=== PATIENT | male | born 1990 | race Caucasian/White ===

== ENCOUNTER 2023-04-06 13:17 | Inpatient (IN) | payer OTHER ==
[2023-04-06] MEDS ORDERED: ACETAMINOPHEN 1000 MG/100 ML BAG IVPB ONE ×2 (14:08→21:22)
[2023-04-06] MEDS ORDERED: ACETAMINOPHEN INJECTION 100 ML IVPB ONE (14:20)
[2023-04-06 14:53] LABS: BASO % 0.2 % (0-2.0); EOS % 1.2 % (0-4.5); HEMATOCRIT 34.9 % (35.4-49); HEMOGLOBIN 11.7 GM/dL (11.7-16.9); MCH 29.7 pg (25.7-33.7); MCHC 33.6 g/dl (32.0-35.9); MEAN CELL VOLUME 88.4 fl (80-96); MEAN PLT VOLUME 7.4 fl (7.5-11.1); MONO % 6.8 % (3.8-10.2); NEUT % 82.8 % (42.8-82.8); PLATELET COUNT 256 10^3/uL (134-434); RBC 3.94 M/mm3 (4.00-5.60); RDW 13.3 % (11.9-15.9); WHITE BLOOD COUNT 14.4 K/mm3 (4.0-10.0)
[2023-04-06] MEDS ORDERED: ALBUTEROL SO4 0.083% IH SOL 2.5 MG/3 ML VIAL.NEB. NEB ONE (15:16)
[2023-04-06 15:17] LABS: CALCIUM 8.5 mg/dL (8.5-10.1)
[2023-04-06] MEDS ORDERED: LIDOCAINE 5% TOPICAL PATCH ONE (15:17)
[2023-04-06 15:18] LABS: ALBUMIN 2.7 g/dl (3.4-5.0); BLOOD UREA NITROGEN 12.5 mg/dL (7-18)
[2023-04-06] MEDS ORDERED: ACETAMINOPHEN 500 MG TABLET (FP) PO PRN (15:19)
[2023-04-06] MEDS ORDERED: KETOROLAC TROMETHAMINE 15 MG/ML VIAL IVPUSH PRN (15:19)
[2023-04-06 15:21] LABS: CREATININE 0.9 mg/dL (0.55-1.3)
[2023-04-06 15:22] LABS: BILIRUBIN,TOTAL 0.6 mg/dL (0.2-1)
[2023-04-06 15:23] LABS: TOT PROT 6.8 g/dl (6.4-8.2)
[2023-04-06] MEDS: LIDOCAINE 5% TOPICAL PATCH TP SCH (15:29)
[2023-04-06] MEDS ORDERED: ALBUTEROL SO4 0.5 % INH SOLN 2.5 MG/0.5 ML VIAL.NEB. NEB SCH (15:30)
[2023-04-06] MEDS ORDERED: ALBUTEROL SULFATE 0.021% (0.63 MG/3 ML) VIAL.NEB NEB SCH (16:00)
[2023-04-06] MEDS: ALBUTEROL SO4 0.083% IH SOL 2.5 MG/3 ML VIAL.NEB. NEB SCH ×2 (20:41→23:02)
[2023-04-06] MEDS: HEPARIN NA (PORCINE) 5,000 UNITS/ML 1ML VIAL SQ SCH (21:41)
[2023-04-06] MEDS: DOXYCYCLINE INJECTION 100 MG in DEXTROSE 5%-WATER 100 ML IVPB SCH (21:42)
[2023-04-06] MEDS ORDERED: LIDOCAINE PATCH REMOVAL MC SCH (22:00)
[2023-04-07] MEDS: ALBUTEROL SO4 0.083% IH SOL 2.5 MG/3 ML VIAL.NEB. NEB SCH ×5 (04:10→20:45)
[2023-04-07 09:13] LABS: BASO % 0.2 % (0-2.0); EOS % 0.4 % (0-4.5); HEMATOCRIT 35.8 % (35.4-49); HEMOGLOBIN 11.9 GM/dL (11.7-16.9); LYMPH % 11.2 % (8-40); MCH 29.9 pg (25.7-33.7); MCHC 33.2 g/dl (32.0-35.9); MEAN CELL VOLUME 89.8 fl (80-96); MEAN PLT VOLUME 7.8 fl (7.5-11.1); MONO % 8.1 % (3.8-10.2); NEUT % 80.1 % (42.8-82.8); PLATELET COUNT 298 10^3/uL (134-434); RBC 3.98 M/mm3 (4.00-5.60); RDW 12.6 % (11.9-15.9)
[2023-04-07] MEDS: HEPARIN NA (PORCINE) 5,000 UNITS/ML 1ML VIAL SQ SCH ×2 (09:14→21:04)
[2023-04-07] MEDS: DOXYCYCLINE INJECTION 100 MG in DEXTROSE 5%-WATER 100 ML IVPB SCH (09:15)
[2023-04-07] MEDS: LIDOCAINE 5% TOPICAL PATCH TP SCH (09:15)
[2023-04-07 09:29] LABS: POTASSIUM 3.9 mmol/L (3.5-5.1)
[2023-04-07 09:30] LABS: CALCIUM 8.6 mg/dL (8.5-10.1)
[2023-04-07 09:31] LABS: BLOOD UREA NITROGEN 7.2 mg/dL (7-18)
[2023-04-07] MEDS ORDERED: CEFTRIAXONE 1 GM in DEXTROSE 5%-WATER - 50 ML IVPB SCH (10:00)
[2023-04-07] MEDS ORDERED: PIPERACILLIN/TAZOB 4.5 GM 4.5 GM in DEXTROSE 5%-WATER 100 ML IVPB SCH (11:00)
[2023-04-07] MEDS ORDERED: ACETAMINOPHEN 1000 MG/100 ML BAG IVPB ONE (12:05)
[2023-04-07] MEDS: methylPREDNISolone NA SUCC 40 MG/1 ML VIAL IVPUSH SCH (13:12)
[2023-04-07] MEDS: LINEZOLID 600 MG PREMIX BAG 600 MG/300 ML BAG IVPB SCH (13:45)
[2023-04-07] MEDS: PIPERACILLIN/TAZOB 4.5 GM 4.5 GM in DEXTROSE 5%-WATER 100 ML IVPB SCH ×2 (15:10→21:04)
[2023-04-07] MEDS ORDERED: FENTANYL CITRATE/PF 50 MCG/ML VIAL ONE (16:57)
[2023-04-07] MEDS ORDERED: FENTANYL CITRATE/PF 50 MCG/ML VIAL IVPUSH ONE (17:00)
[2023-04-07] MEDS ORDERED: KETOROLAC TROMETHAMINE 15 MG/ML VIAL IVPUSH PRN (20:03)
[2023-04-07] MEDS ORDERED: ALBUTEROL SO4 0.083% IH SOL 2.5 MG/3 ML VIAL.NEB. NEB ONE (20:39)
[2023-04-07] MEDS: LIDOCAINE PATCH REMOVAL MC SCH (21:04)
[2023-04-07] MEDS: ACETAMINOPHEN 1000 MG/100 ML BAG IVPB PRN (21:05)
[2023-04-07 22:35] LABS: BF WBC & OTHER NUCLEATED CELLS 105 /mm3
[2023-04-07 23:12] LABS: BODY FLUID MACROPHAGES 2 %
[2023-04-08] MEDS: LINEZOLID 600 MG PREMIX BAG 600 MG/300 ML BAG IVPB SCH ×2 (00:04→12:23)
[2023-04-08] MEDS: PIPERACILLIN/TAZOB 4.5 GM 4.5 GM in DEXTROSE 5%-WATER 100 ML IVPB SCH ×4 (03:38→21:25)
[2023-04-08] MEDS: ALBUTEROL SO4 0.083% IH SOL 2.5 MG/3 ML VIAL.NEB. NEB SCH ×7 (04:00→23:38)
[2023-04-08] MEDS: HEPARIN NA (PORCINE) 5,000 UNITS/ML 1ML VIAL SQ SCH ×2 (09:03→21:25)
[2023-04-08] MEDS: methylPREDNISolone NA SUCC 40 MG/1 ML VIAL IVPUSH SCH (09:03)
[2023-04-08] MEDS: ACETAMINOPHEN 1000 MG/100 ML BAG IVPB PRN ×2 (09:03→17:12)
[2023-04-08] MEDS: LIDOCAINE 5% TOPICAL PATCH TP SCH (09:04)
[2023-04-08 10:10] LABS: BASO % 0.3 % (0-2.0); HEMOGLOBIN 11.3 GM/dL (11.7-16.9); MCH 29.1 pg (25.7-33.7); MCHC 33.2 g/dl (32.0-35.9); MEAN CELL VOLUME 87.5 fl (80-96); MEAN PLT VOLUME 7.8 fl (7.5-11.1); MONO % 7.8 % (3.8-10.2); NEUT % 86.9 % (42.8-82.8); PLATELET COUNT 325 10^3/uL (134-434); RBC 3.89 M/mm3 (4.00-5.60); RDW 12.9 % (11.9-15.9)
[2023-04-08 10:11] LABS: POTASSIUM 4.3 mmol/L (3.5-5.1)
[2023-04-08 10:13] LABS: CALCIUM 8.9 mg/dL (8.5-10.1)
[2023-04-08 10:14] LABS: ALBUMIN 2.6 g/dl (3.4-5.0); BLOOD UREA NITROGEN 9.6 mg/dL (7-18); MAGNESIUM 2.2 mg/dL (1.8-2.4)
[2023-04-08 10:17] LABS: CREATININE 0.8 mg/dL (0.55-1.3); PHOSPHOROUS 4.2 mg/dL (2.5-4.9)
[2023-04-08 10:18] LABS: BILIRUBIN,TOTAL 0.5 mg/dL (0.2-1); TOT PROT 7.2 g/dl (6.4-8.2)
[2023-04-08 12:14] LABS: INR 1.19 (0.83-1.09); PROTHROMBIN TIME (PATIENT) 13.8 SEC (9.7-13.0)
[2023-04-08 12:17] LABS: ACTIVATED PTT 30.2 SECONDS (25.2-36.5)
[2023-04-08 12:48] LABS: HIV INTERPRETATION NEGATIVE (NEGATIVE)
[2023-04-08] MEDS: LIDOCAINE PATCH REMOVAL MC SCH (21:25)
[2023-04-09] MEDS: ACETAMINOPHEN 500 MG TABLET (FP) PO PRN ×2 (00:21→18:49)
[2023-04-09] MEDS: LINEZOLID 600 MG PREMIX BAG 600 MG/300 ML BAG IVPB SCH ×2 (00:21→13:19)
[2023-04-09] MEDS: PIPERACILLIN/TAZOB 4.5 GM 4.5 GM in DEXTROSE 5%-WATER 100 ML IVPB SCH ×4 (02:53→21:28)
[2023-04-09] MEDS: ALBUTEROL SO4 0.083% IH SOL 2.5 MG/3 ML VIAL.NEB. NEB SCH ×6 (04:00→23:34)
[2023-04-09 07:26] LABS: BASO % 0.1 % (0-2.0); EOS % 0.2 % (0-4.5); HEMATOCRIT 32.6 % (35.4-49); HEMOGLOBIN 10.6 GM/dL (11.7-16.9); LYMPH % 10.8 % (8-40); MCH 29.2 pg (25.7-33.7); MCHC 32.5 g/dl (32.0-35.9); MEAN CELL VOLUME 89.8 fl (80-96); MEAN PLT VOLUME 7.7 fl (7.5-11.1); MONO % 9.1 % (3.8-10.2); NEUT % 79.8 % (42.8-82.8); PLATELET COUNT 379 10^3/uL (134-434); RBC 3.63 M/mm3 (4.00-5.60); RDW 13.1 % (11.9-15.9)
[2023-04-09 07:47] LABS: POTASSIUM 4.6 mmol/L (3.5-5.1)
[2023-04-09 07:54] LABS: ALBUMIN 2.4 g/dl (3.4-5.0); BLOOD UREA NITROGEN 13.2 mg/dL (7-18); MAGNESIUM 2.2 mg/dL (1.8-2.4)
[2023-04-09 07:56] LABS: PHOSPHOROUS 2.9 mg/dL (2.5-4.9)
[2023-04-09 07:57] LABS: CREATININE 0.9 mg/dL (0.55-1.3)
[2023-04-09 07:58] LABS: BILIRUBIN,TOTAL 0.4 mg/dL (0.2-1); TOT PROT 6.8 g/dl (6.4-8.2)
[2023-04-09] MEDS: LIDOCAINE 5% TOPICAL PATCH TP SCH (10:23)
[2023-04-09] MEDS: methylPREDNISolone NA SUCC 40 MG/1 ML VIAL IVPUSH SCH (10:23)
[2023-04-09] MEDS: HEPARIN NA (PORCINE) 5,000 UNITS/ML 1ML VIAL SQ SCH (10:23)
[2023-04-09] MEDS: LIDOCAINE PATCH REMOVAL MC SCH (21:29)
[2023-04-10] MEDS: LINEZOLID 600 MG PREMIX BAG 600 MG/300 ML BAG IVPB SCH ×3 (00:58→23:59)
[2023-04-10] MEDS: PIPERACILLIN/TAZOB 4.5 GM 4.5 GM in DEXTROSE 5%-WATER 100 ML IVPB SCH ×4 (02:57→20:59)
[2023-04-10] MEDS: ALBUTEROL SO4 0.083% IH SOL 2.5 MG/3 ML VIAL.NEB. NEB SCH ×5 (04:30→20:03)
[2023-04-10 07:11] LABS: BASO % 0.1 % (0-2.0); EOS % 0.7 % (0-4.5); HEMATOCRIT 33.3 % (35.4-49); HEMOGLOBIN 10.8 GM/dL (11.7-16.9); LYMPH % 16.3 % (8-40); MCH 29.2 pg (25.7-33.7); MCHC 32.5 g/dl (32.0-35.9); MEAN CELL VOLUME 89.8 fl (80-96); MEAN PLT VOLUME 7.3 fl (7.5-11.1); MONO % 10.1 % (3.8-10.2); NEUT % 72.8 % (42.8-82.8); PLATELET COUNT 399 10^3/uL (134-434); RDW 13.3 % (11.9-15.9); WHITE BLOOD COUNT 11.6 K/mm3 (4.0-10.0)
[2023-04-10 07:21] LABS: INR 1.12 (0.83-1.09)
[2023-04-10 07:22] LABS: ACTIVATED PTT 25.9 SECONDS (25.2-36.5)
[2023-04-10 07:25] LABS: POTASSIUM 4.3 mmol/L (3.5-5.1)
[2023-04-10 07:30] LABS: ALBUMIN 2.2 g/dl (3.4-5.0); CALCIUM 8.6 mg/dL (8.5-10.1)
[2023-04-10 07:31] LABS: BLOOD UREA NITROGEN 13.2 mg/dL (7-18); MAGNESIUM 2.1 mg/dL (1.8-2.4)
[2023-04-10 07:33] LABS: PHOSPHOROUS 3.6 mg/dL (2.5-4.9)
[2023-04-10 07:34] LABS: CREATININE 0.8 mg/dL (0.55-1.3)
[2023-04-10 07:35] LABS: BILIRUBIN,TOTAL 0.4 mg/dL (0.2-1); TOT PROT 6.8 g/dl (6.4-8.2)
[2023-04-10] MEDS: LIDOCAINE 5% TOPICAL PATCH TP SCH (09:27)
[2023-04-10] MEDS: methylPREDNISolone NA SUCC 40 MG/1 ML VIAL IVPUSH SCH (09:45)
[2023-04-10] MEDS: LIDOCAINE PATCH REMOVAL MC SCH (20:59)
[2023-04-11] MEDS: ALBUTEROL SO4 0.083% IH SOL 2.5 MG/3 ML VIAL.NEB. NEB SCH ×6 (00:21→19:56)
[2023-04-11] MEDS: PIPERACILLIN/TAZOB 4.5 GM 4.5 GM in DEXTROSE 5%-WATER 100 ML IVPB SCH ×4 (02:59→21:29)
[2023-04-11 07:18] LABS: POTASSIUM 4.7 mmol/L (3.5-5.1)
[2023-04-11 07:26] LABS: ALBUMIN 2.3 g/dl (3.4-5.0); BLOOD UREA NITROGEN 14.1 mg/dL (7-18); CALCIUM 8.7 mg/dL (8.5-10.1); MAGNESIUM 2.3 mg/dL (1.8-2.4)
[2023-04-11 07:29] LABS: CREATININE 0.9 mg/dL (0.55-1.3); PHOSPHOROUS 3.8 mg/dL (2.5-4.9)
[2023-04-11 07:30] LABS: BILIRUBIN,TOTAL 0.3 mg/dL (0.2-1); TOT PROT 7.1 g/dl (6.4-8.2)
[2023-04-11 07:40] LABS: INR 1.09 (0.83-1.09); PROTHROMBIN TIME (PATIENT) 12.6 SEC (9.7-13.0)
[2023-04-11 07:48] LABS: BASO % 0.1 % (0-2.0); EOS % 1.1 % (0-4.5); HEMATOCRIT 34.7 % (35.4-49); HEMOGLOBIN 11.7 GM/dL (11.7-16.9); LYMPH % 18.6 % (8-40); MCH 29.7 pg (25.7-33.7); MCHC 33.7 g/dl (32.0-35.9); MEAN CELL VOLUME 88.2 fl (80-96); MEAN PLT VOLUME 6.7 fl (7.5-11.1); MONO % 8.2 % (3.8-10.2); PLATELET COUNT 441 10^3/uL (134-434); RBC 3.93 M/mm3 (4.00-5.60); RDW 13.5 % (11.9-15.9); WHITE BLOOD COUNT 11.7 K/mm3 (4.0-10.0)
[2023-04-11] MEDS ORDERED: PROPOFOL 40 ML ONE (08:22)
[2023-04-11] MEDS ORDERED: SUCCINYLCHOLINE CHLORIDE 200 MG/10 ML SYRINGE ONE (08:22)
[2023-04-11] MEDS ORDERED: ROCURONIUM BROMIDE 50 MG/5 ML SYRINGE ONE ×2 (08:22→11:36)
[2023-04-11] MEDS ORDERED: MIDAZOLAM HCL 2 MG/2 ML SINGLE DOSE VIAL ONE (08:23)
[2023-04-11] MEDS ORDERED: BUPIVACAINE HCL/PF 0.25% (2.5MG/ML) 10 ML VIAL ONE ×2 (09:22→09:36)
[2023-04-11] MEDS ORDERED: HYDROmorphone HCl 2 MG/ML VIAL ONE (10:00)
[2023-04-11] MEDS ORDERED: ceFAZolin SODIUM 1 GM VIAL IVPB ONE (10:09)
[2023-04-11] MEDS: LIDOCAINE 5% TOPICAL PATCH TP SCH (11:28)
[2023-04-11] MEDS: HEPARIN NA (PORCINE) 5,000 UNITS/ML 1ML VIAL SQ SCH ×2 (11:28→21:29)
[2023-04-11] MEDS: methylPREDNISolone NA SUCC 40 MG/1 ML VIAL IVPUSH SCH (11:29)
[2023-04-11] MEDS ORDERED: BUPIVACAINE HCL/PF 0.25% (2.5MG/ML) 10 ML VIAL IJ ONE ×2 (11:40→11:43)
[2023-04-11] MEDS ORDERED: NEOSTIGMINE METHYLSULFATE 0.5 MG/1 ML - 10 ML MDV ONE (11:59)
[2023-04-11] MEDS ORDERED: ACETAMINOPHEN 1000 MG/100 ML BAG IVPB PRN ×2 (13:12→15:08)
[2023-04-11] MEDS ORDERED: ONDANSETRON 4 MG/2 ML VIAL IVPUSH PRN ×2 (13:12→15:08)
[2023-04-11] MEDS ORDERED: HYDROmorphone HCl 2 MG/ML VIAL IVPUSH PRN (13:13)
[2023-04-11] MEDS ORDERED: LACTATED RINGERS SOLUTION 1,000 ML IV SCH (13:15)
[2023-04-11] MEDS ORDERED: ACETAMINOPHEN INJECTION 100 ML IVPB ONE (13:21)
[2023-04-11] MEDS ORDERED: DEXAMETHASONE SOD PHOSPHATE 4 MG/1 ML VIAL IVPUSH PRN ×2 (13:28→15:08)
[2023-04-11] MEDS ORDERED: SODIUM CHLORIDE 1,000 ML IV SCH (13:30)
[2023-04-11] MEDS ORDERED: HYDROmorphone *PCA* 10MG/50ML DISP.SYRIN PCA SCH (13:30)
[2023-04-11] MEDS: HYDROmorphone *PCA* 10MG/50ML DISP.SYRIN PCA SCH (15:32)
[2023-04-11] MEDS: SODIUM CHLORIDE 1,000 ML IV SCH ×2 (15:38→21:44)
[2023-04-11] MEDS: LINEZOLID 600 MG PREMIX BAG 600 MG/300 ML BAG IVPB SCH (17:28)
[2023-04-11] MEDS: KETOROLAC TROMETHAMINE 15 MG/ML VIAL IVPUSH SCH (19:01)
[2023-04-11] MEDS: CHLORHEXIDINE GLUCONATE 4% CLEANSER FOR DECOLONIZATION TP SCH (21:29)
[2023-04-11] MEDS: MUPIROCIN 2% TOPICAL OINTMENT FOR DECOLONIZATION NS SCH (21:29)
[2023-04-11] MEDS: LIDOCAINE PATCH REMOVAL MC SCH (21:30)
[2023-04-11] MEDS ORDERED: CHLORHEXIDINE GLUCONATE 4% CLEANSER FOR DECOLONIZATION TP SCH (22:00)
[2023-04-11] MEDS ORDERED: LIDOCAINE PATCH REMOVAL MC SCH (22:00)
[2023-04-11] MEDS ORDERED: MUPIROCIN 2% TOPICAL OINTMENT FOR DECOLONIZATION NS SCH (22:00)
[2023-04-12] MEDS: ALBUTEROL SO4 0.083% IH SOL 2.5 MG/3 ML VIAL.NEB. NEB SCH ×6 (00:05→20:30)
[2023-04-12] MEDS: KETOROLAC TROMETHAMINE 15 MG/ML VIAL IVPUSH SCH ×4 (01:25→20:26)
[2023-04-12] MEDS: PIPERACILLIN/TAZOB 4.5 GM 4.5 GM in DEXTROSE 5%-WATER 100 ML IVPB SCH ×4 (02:02→20:26)
[2023-04-12 08:19] LABS: ALBUMIN 2.1 g/dl (3.4-5.0); BLOOD UREA NITROGEN 13.2 mg/dL (7-18); CALCIUM 8.1 mg/dL (8.5-10.1); MAGNESIUM 2.2 mg/dL (1.8-2.4)
[2023-04-12 08:22] LABS: PHOSPHOROUS 3.1 mg/dL (2.5-4.9)
[2023-04-12 08:24] LABS: BILIRUBIN,TOTAL 0.5 mg/dL (0.2-1); TOT PROT 6.2 g/dl (6.4-8.2)
[2023-04-12 08:42] LABS: BASO % 0.2 % (0-2.0); EOS % 2.1 % (0-4.5); HEMATOCRIT 32.5 % (35.4-49); HEMOGLOBIN 10.7 GM/dL (11.7-16.9); LYMPH % 13.1 % (8-40); MCH 29.6 pg (25.7-33.7); MEAN CELL VOLUME 89.7 fl (80-96); MEAN PLT VOLUME 6.6 fl (7.5-11.1); MONO % 9.1 % (3.8-10.2); NEUT % 75.5 % (42.8-82.8); PLATELET COUNT 457 10^3/uL (134-434); RBC 3.62 M/mm3 (4.00-5.60); RDW 13.5 % (11.9-15.9); WHITE BLOOD COUNT 12.3 K/mm3 (4.0-10.0)
[2023-04-12] MEDS: HEPARIN NA (PORCINE) 5,000 UNITS/ML 1ML VIAL SQ SCH ×2 (09:57→21:44)
[2023-04-12] MEDS: methylPREDNISolone NA SUCC 40 MG/1 ML VIAL IVPUSH SCH (09:57)
[2023-04-12] MEDS: LIDOCAINE 5% TOPICAL PATCH TP SCH (09:58)
[2023-04-12] MEDS: MUPIROCIN 2% TOPICAL OINTMENT FOR DECOLONIZATION NS SCH ×2 (09:58→21:44)
[2023-04-12] MEDS: LINEZOLID 600 MG PREMIX BAG 600 MG/300 ML BAG IVPB SCH ×2 (14:29)
[2023-04-12] MEDS: SODIUM CHLORIDE 1,000 ML IV SCH (17:07)
[2023-04-12] MEDS: CHLORHEXIDINE GLUCONATE 4% CLEANSER FOR DECOLONIZATION TP SCH (21:44)
[2023-04-12] MEDS: LIDOCAINE PATCH REMOVAL MC SCH (21:45)
[2023-04-13] MEDS: HYDROmorphone *PCA* 10MG/50ML DISP.SYRIN PCA SCH ×2 (03:00→17:43)
[2023-04-13] MEDS: PIPERACILLIN/TAZOB 4.5 GM 4.5 GM in DEXTROSE 5%-WATER 100 ML IVPB SCH ×4 (03:15→21:10)
[2023-04-13] MEDS: ALBUTEROL SO4 0.083% IH SOL 2.5 MG/3 ML VIAL.NEB. NEB SCH ×6 (04:00→20:59)
[2023-04-13] MEDS: ACETAMINOPHEN 1000 MG/100 ML BAG IVPB PRN ×2 (04:48→18:35)
[2023-04-13 06:55] LABS: BASO % 0.5 % (0-2.0); EOS % 3.6 % (0-4.5); HEMOGLOBIN 10.8 GM/dL (11.7-16.9); LYMPH % 18.2 % (8-40); MCHC 31.6 g/dl (32.0-35.9); MEAN CELL VOLUME 91.5 fl (80-96); MEAN PLT VOLUME 6.8 fl (7.5-11.1); MONO % 8.9 % (3.8-10.2); NEUT % 68.8 % (42.8-82.8); PLATELET COUNT 521 10^3/uL (134-434); RBC 3.72 M/mm3 (4.00-5.60); RDW 13.6 % (11.9-15.9); WHITE BLOOD COUNT 11.2 K/mm3 (4.0-10.0)
[2023-04-13 07:12] LABS: POTASSIUM 4.5 mmol/L (3.5-5.1)
[2023-04-13 07:16] LABS: ALBUMIN 2.1 g/dl (3.4-5.0); CALCIUM 8.7 mg/dL (8.5-10.1); MAGNESIUM 2.1 mg/dL (1.8-2.4)
[2023-04-13 07:19] LABS: CREATININE 0.9 mg/dL (0.55-1.3)
[2023-04-13 07:21] LABS: BILIRUBIN,TOTAL 0.4 mg/dL (0.2-1); TOT PROT 6.5 g/dl (6.4-8.2)
[2023-04-13] MEDS ORDERED: FUROSEMIDE 40 MG/4 ML INJECTABLE VIAL IVPUSH ONE (09:00)
[2023-04-13] MEDS: HEPARIN NA (PORCINE) 5,000 UNITS/ML 1ML VIAL SQ SCH ×2 (09:35→21:09)
[2023-04-13] MEDS: methylPREDNISolone NA SUCC 40 MG/1 ML VIAL IVPUSH SCH (09:35)
[2023-04-13] MEDS: KETOROLAC TROMETHAMINE 30 MG/1 ML VIAL IVPUSH PRN (09:35)
[2023-04-13] MEDS: LIDOCAINE 5% TOPICAL PATCH TP SCH (09:53)
[2023-04-13 11:42] VITALS: BMI 31.9
[2023-04-13] MEDS ORDERED: FUROSEMIDE 40 MG/4 ML INJECTABLE VIAL IVPUSH SCH (14:00)
[2023-04-13] MEDS: MUPIROCIN 2% TOPICAL OINTMENT FOR DECOLONIZATION NS SCH ×2 (14:03→21:09)
[2023-04-13] MEDS: CHLORHEXIDINE GLUCONATE 4% CLEANSER FOR DECOLONIZATION TP SCH (21:10)
[2023-04-13] MEDS: LIDOCAINE PATCH REMOVAL MC SCH (22:15)
[2023-04-14] MEDS: ALBUTEROL SO4 0.083% IH SOL 2.5 MG/3 ML VIAL.NEB. NEB SCH ×6 (00:47→20:04)
[2023-04-14] MEDS: PIPERACILLIN/TAZOB 4.5 GM 4.5 GM in DEXTROSE 5%-WATER 100 ML IVPB SCH ×4 (03:06→21:25)
[2023-04-14] MEDS: ACETAMINOPHEN 1000 MG/100 ML BAG IVPB PRN (04:00)
[2023-04-14 07:38] LABS: BASO % 0.1 % (0-2.0); HEMATOCRIT 33.6 % (35.4-49); HEMOGLOBIN 10.9 GM/dL (11.7-16.9); LYMPH % 20.1 % (8-40); MCH 29.4 pg (25.7-33.7); MCHC 32.4 g/dl (32.0-35.9); MEAN CELL VOLUME 90.7 fl (80-96); MEAN PLT VOLUME 6.8 fl (7.5-11.1); MONO % 7.6 % (3.8-10.2); NEUT % 68.2 % (42.8-82.8); PLATELET COUNT 583 10^3/uL (134-434); RBC 3.71 M/mm3 (4.00-5.60); RDW 13.4 % (11.9-15.9); WHITE BLOOD COUNT 10.1 K/mm3 (4.0-10.0)
[2023-04-14 07:53] LABS: POTASSIUM 4.5 mmol/L (3.5-5.1)
[2023-04-14 07:57] LABS: ALBUMIN 2.2 g/dl (3.4-5.0); BLOOD UREA NITROGEN 17.2 mg/dL (7-18); CALCIUM 9.1 mg/dL (8.5-10.1)
[2023-04-14 07:58] LABS: MAGNESIUM 1.9 mg/dL (1.8-2.4)
[2023-04-14 08:01] LABS: CREATININE 0.9 mg/dL (0.55-1.3); PHOSPHOROUS 4.1 mg/dL (2.5-4.9)
[2023-04-14 08:02] LABS: TOT PROT 6.6 g/dl (6.4-8.2)
[2023-04-14 08:04] LABS: BILIRUBIN,TOTAL 0.2 mg/dL (0.2-1)
[2023-04-14] MEDS: MUPIROCIN 2% TOPICAL OINTMENT FOR DECOLONIZATION NS SCH ×2 (09:57→21:27)
[2023-04-14] MEDS: LIDOCAINE 5% TOPICAL PATCH TP SCH (09:58)
[2023-04-14] MEDS: HEPARIN NA (PORCINE) 5,000 UNITS/ML 1ML VIAL SQ SCH ×2 (09:58→21:25)
[2023-04-14] MEDS: methylPREDNISolone NA SUCC 40 MG/1 ML VIAL IVPUSH SCH (09:58)
[2023-04-14] MEDS: HYDROmorphone *PCA* 10MG/50ML DISP.SYRIN PCA SCH (20:31)
[2023-04-14] MEDS: KETOROLAC TROMETHAMINE 30 MG/1 ML VIAL IVPUSH PRN (21:25)
[2023-04-14] MEDS: CHLORHEXIDINE GLUCONATE 4% CLEANSER FOR DECOLONIZATION TP SCH (21:27)
[2023-04-14] MEDS: LIDOCAINE PATCH REMOVAL MC SCH (21:27)
[2023-04-15] MEDS: PIPERACILLIN/TAZOB 4.5 GM 4.5 GM in DEXTROSE 5%-WATER 100 ML IVPB SCH ×2 (02:10→11:06)
[2023-04-15] MEDS: ALBUTEROL SO4 0.083% IH SOL 2.5 MG/3 ML VIAL.NEB. NEB SCH ×3 (05:56→11:00)
[2023-04-15 07:32] LABS: BASO % 0.3 % (0-2.0); EOS % 2.4 % (0-4.5); HEMATOCRIT 34.8 % (35.4-49); HEMOGLOBIN 11.6 GM/dL (11.7-16.9); LYMPH % 20.3 % (8-40); MCH 30.1 pg (25.7-33.7); MCHC 33.5 g/dl (32.0-35.9); MEAN CELL VOLUME 89.9 fl (80-96); MEAN PLT VOLUME 6.7 fl (7.5-11.1); MONO % 6.6 % (3.8-10.2); NEUT % 70.4 % (42.8-82.8); PLATELET COUNT 647 10^3/uL (134-434); RBC 3.87 M/mm3 (4.00-5.60); RDW 13.2 % (11.9-15.9); WHITE BLOOD COUNT 10.8 K/mm3 (4.0-10.0)
[2023-04-15 07:46] LABS: POTASSIUM 4.5 mmol/L (3.5-5.1)
[2023-04-15 07:49] LABS: ALBUMIN 2.4 g/dl (3.4-5.0); BLOOD UREA NITROGEN 15.6 mg/dL (7-18); CALCIUM 9.1 mg/dL (8.5-10.1)
[2023-04-15 07:52] LABS: CREATININE 0.9 mg/dL (0.55-1.3); PHOSPHOROUS 4.3 mg/dL (2.5-4.9)
[2023-04-15 07:54] LABS: BILIRUBIN,TOTAL 0.2 mg/dL (0.2-1); TOT PROT 7.1 g/dl (6.4-8.2)
[2023-04-15 09:07] VITALS: RESP 18
[2023-04-15] MEDS: HEPARIN NA (PORCINE) 5,000 UNITS/ML 1ML VIAL SQ SCH (11:05)
[2023-04-15] MEDS: LIDOCAINE 5% TOPICAL PATCH TP SCH (11:06)
[2023-04-15] MEDS: MUPIROCIN 2% TOPICAL OINTMENT FOR DECOLONIZATION NS SCH (11:06)
[2023-04-15] MEDS: methylPREDNISolone NA SUCC 40 MG/1 ML VIAL IVPUSH SCH (11:48)
[2023-04-15 13:55] VITALS: BP 139/83; PULSE 82; TEMP 98.1
== END 2023-04-15 14:34 | disposition home or self-care (01) | DRG 710 ==
LOC: JER 13:17 → JERBED 15:08 → J5S 19:45 → J2W 04-07 17:49 → JICU 04-11 15:50
PROVIDERS: ADMIT Internal Medicine; ATTEND Internal Medicine Pulmonary Disease
PROC: 0W9930Z Drainage of Right Pleural Cavity with Drainage Device, Percutaneous Approach (ICD-10-PCS; 2023-04-07)
PROC: 0BCK4ZZ Extirpation of Matter from Right Lung, Percutaneous Endoscopic Approach (ICD-10-PCS; 2023-04-11)
PROC: 0W9930Z Drainage of Right Pleural Cavity with Drainage Device, Percutaneous Approach (ICD-10-PCS; 2023-04-11)
PROC: 0BCN4ZZ Extirpation of Matter from Right Pleura, Percutaneous Endoscopic Approach (ICD-10-PCS; principal; 2023-04-11 08:30)
DX: A41.9 Sepsis, unspecified organism (principal); J18.9 Pneumonia, unspecified organism; J96.01 Acute respiratory failure with hypoxia; J86.9 Pyothorax without fistula; J90 Pleural effusion, not elsewhere classified; J98.11 Atelectasis; D72.829 Elevated white blood cell count, unspecified; D64.9 Anemia, unspecified; E66.9 Obesity, unspecified; Z68.31 Body mass index [BMI] 31.0-31.9, adult; R73.9 Hyperglycemia, unspecified
CPT/HCPCS: 0241U-QW; 32557; 36415; 71045-TC-FY; 71250-TC; 80048; 80053; 82945; 83605; 83615; 83690; 83735; 83880; 83986; 84100; 84484; 85025; 85610; 85730; 86480; 86850; 86900; 86901; 87040; 87070; 87075; 87081; 87102; 87116; 87205; 87206; 87210; 87389; 87556; 87899; 88108; 88305-TC; 93005; 93010; 94010; 94640; 94760; 99285-25; J1644